=== PATIENT | female | born 1985 | race Caucasian/White ===

== ENCOUNTER 2019-05-01 19:40 | Inpatient (IN) | payer OTHER, SELFPAY ==
[2017-08-26 09:52] VITALS: BMI 28.7
[2019-05-01] VITALS (7 sets, daily range): BP systolic 109–136; BP diastolic 67–90; PULSE 63–77; RESP 13–18; TEMP 36.7; O2SAT 96–98; BMI 29.5
[2019-05-01] MEDS: Lactated Ringers 1,000 ML 999 ML IV (20:00)
[2019-05-01 20:44] LABS: Bacteria 0 SEEN /hpf (None Seen); Mucous, Urine 0 SEEN /hpf (<or=2+); Red Blood Cells-Urine 0 SEEN /hpf (0-5); White Blood Cells 0 SEEN /hpf (0-5)
--- NOTE | 2019-05-01 20:47 | PCM.HP.OB ---
History Date of Admission: 08/26/17 Final GABRIELLE: 04/27/19 Gestational age: 40 Weeks and 4 Days History of this : This is a 34 year-old, G [], P [], at weeks gestational age. Allergies No Known Allergies Allergy (Verified 08/26/17 12:22) Home Medications: Home Medications Naproxen [Naprosyn] 250 - 500 mg PO Q8H PRN PRN #30 tablet 08/29/17 Oxycodone HCl/Acetaminophen [Percocet 5-325] 2 tablet PO Q4H PRN PRN #30 tablet 08/29/17 Smoking Status: Never smoker Alcohol: None Number of Fetus(es): 1 Heart Tracin with moderate variability, accels TOCO Analysis: Q 3-6 minutes History Past Pregnancies: Past Pregnancies Delivery Date Name GA/Weeks Outcome Route Weight Infant Gender Labor Length Anesthesia Delivery Location Provider FOB Patient with 10 pregnancies. 9 were term & included twins. Her first delivery was 7 weeks early. Labs: Patient had 4 visits prior to today with signs and displays sales representative. She reports mild anemia (10.8 per records). States she took PNV, iron & sometimes a probiotic. Review of Systems HEENT: Reports: Head Aches - Patient reported headache to automobile accessories salesperson earlier today. Denies vision changes. Physical Exam Extremities:: No edema Neurological: Cranial nerves II-XII grossly intact PRODUCTION DIRECTOR: Normal external genitalia Estimated gestational size: Appropriate for gestational size Presentation: Breech - TAUS performed shows breech active fetus. Measurements c/w term fetus. Cervix Dilation (cm): 3 Station: -3 Effacement (%): 50 Assessment/Plan This is a 34 year-old female at 40&4 in labor. Admit to L&D. MOD - patient in labor with breech fetus. Counseled on R/B/A and will proceed with repeat . Informed consent sign. Pre-op ancef ordered. Anesthesia aware. Elevated BP - check preE labs. Patient with at least gestational hypertension.
[2019-05-01 20:49] LABS: Absolute Lymphocyte Count 1.91 X10^3/ul (0.83-4.51); Absolute Neutrophil Count 6.7 X10^3/uL (2.0-7.7); Basophil# 0.03 X10^3/uL; Basophil% 0.3 % (0-1); Hemoglobin 11.8 g/dl (12.0-15.0); Lymphocyte # 1.91 X10^3/ul (4.0); Lymphocyte % 20.5 % (19-41); Mean Corp Hgb Conc 34.7 g/gl (32-36); Mean Corpuscular Hgb 31.2 pg (27.0-32.0); Mean Corpuscular Volume 89.9 fL (81-99); Mean Platelet Vol. 9.4 fl (6.2-12.0); Monocyte# 0.66 X10^3/uL; Monocyte% 7.1 % (0-10); Neutrophil # 6.68 X10^3/uL (2.7-7.7); Neutrophil % 71.9 % (47-70); Platelet Count 213 K/mm3 (150-450); RBC Distribution Width CV 13.3 % (11.6-14.6); RBC Distribution Width SD 43.6 fl (35.1-43.9); Red Blood Count 3.78 M/mm3 (4.2-5.4); White Blood Count 9.3 K/mm3 (4.4-11.0)
[2019-05-01 20:50] LABS: POSITIVE COUNT NO; POSITIVE DIFFERENTIAL NO; POSITIVE MORPHOLOGY NO
--- NOTE | 2019-05-01 20:52 | NURSING ---
2050-had care by multiplex operator-liliam avalos. shirley hill covering for her.
[2019-05-01 20:55] LABS: Prothrombin Time (Protime)PT. 13.3 SECONDS (11.7-14.9)
[2019-05-01 20:56] LABS: Partial Thromboplast Time 27.3 Seconds (24.1-36.2)
[2019-05-01 20:57] LABS: Color, Urine Yellow (Yellow); Glucose, Dipstick Normal (Normal); Ketone-Dipstick 5 mg/dl (Negative); Leukocyte Esterase-Dipstick Negative /ul (Negative); Nitrite-Dipstick Negative (Negative); Occult Blood-Urine Negative /ul (Negative); Protein-Dipstick Negative (Negative); Urine Bilirubin Dipstick Negative (Negative); Urine Clarity Sl. Cloudy (Clear); Urine Urobilinogen Normal (Normal); Urine pH 6.5 (5.0 - 8.0)
[2019-05-01 21:02] LABS: Squamous Epithelial Cells - UA 0-5 SEEN /hpf (5-10)
[2019-05-01 21:04] LABS: AST(SGOT) 15 U/L (15-37); Alanine Aminotransfer ALT/SGPT 19 U/L (13-56); Creatinine, Serum 0.62 mg/dL (0.55-1.02); EST Glomerular Filtration Rate 120 mL/min (>60); Est Glom Filt Rate - Afr Amer 145 mL/min (>60); Estimated Creatinine Clearance 112.49 ml/min
[2019-05-01] MEDS: Sodium Citrate/Citric Acid 30 ML UDC PO (21:04)
[2019-05-01] MEDS: CHLORHEXIDINE GLUC 2% CLOTH 1 EACH TOWELETTE TOPICAL (21:05)
[2019-05-01 21:06] LABS: Amphetamine Urine VISTA NEGATIVE (<1000 ng/mL); Barbiturate Urine VISTA NEGATIVE (< 200 ng/mL); Benzodiazepine Urine VISTA NEGATIVE (< 200 ng/mL); Cocaine Urine VISTA NEGATIVE (< 300 ng/mL); Ecstacy Urine VISTA NEGATIVE (< 500 ng/mL); Methadone Urine VISTA NEGATIVE (< 300 ng/mL); PCP Urine VISTA NEGATIVE (< 25 ng/mL); Protein, Urine (Random) < 6.0 mg/dL (<11.9); THC Urine VISTA NEGATIVE (< 50 ng/mL); Vista UDS pH Range 6
[2019-05-01] MEDS: Cefazolin 2 GM in 0.9% Normal Saline 100 ML IV (21:10)
[2019-05-01] MEDS: Lactated Ringers 1,000 ML 150 ML IV (21:10)
[2019-05-01] MEDS: Ondansetron 4 MG/2 ML Vial IV (21:22)
[2019-05-01] MEDS: Oxytocin 30 units/NS 500 ml 30 UNITS/500 ML IV.SOLN 167 UNITS IV (21:41)
[2019-05-01] MEDS: Ketorolac 15 MG/ML Vial 30 MG IV (21:58)
--- NOTE | 2019-05-01 22:40 | PCM.OPRPT ---
Report of Operation Date of Procedure: 05/01/19 Pre-Operative Diagnosis: (1) Breech (2) Labor (3) Prior section Post-Operative Diagnosis: Same Surgery/Procedure Performed:: Low transverse section Description of Surgical Findings:: Normal maternal uterus and ovaries sales advisor: Steve Rai Type of Anesthesia:: Spinal Drains: palm - 550ml UOP Fluids Replaced: 1500ml Delivery Final GABRIELLE: 04/27/19 Gestational age: 40 Weeks and 4 Days Indications: Patient presented in labor with fetus in breech presentation. Indications for : Repeat Elective , Breech - Labor Description of Procedure: Patient taken to OR where spinal anesthesia was placed. She was prepped and draped in normal sterile fashion in a dorsal lithotomy position with a leftward tilt. After ensuring adequacy of anesthesia the Pfannensteil skin incision was made and carried through to the underlying fascia. The fascia was incised in the midline and carried laterally with the Mejia scissors. The rectus muscles were in the midline and the peritoneum was entered bluntly. The bladder flap was dissected down carefully with the Metzenbaum scissors and blunt dissection. The uterus was incised in a transverse fashion and then incision extended with cephalocaudad traction. The fetus was breech. The feet were grasped & delivered with typical breech maneuvers. No excess traction placed on at any time. The 3VC cord was clamped and cut and the handed off to the waiting RN. The placenta was delivered with gentle traction and fundal massage and the uterus was exteriorized and cleared of all clots and debris. The uterine incision was closed with 1 vicryl suture in a running locked fashion. The bovie was used to further obtain further hemostasis of the uterine incision. A second imbricating layer of monocryl was placed. The uterus was returned to the peritoneal cavity. The pelvis was irrigated & then cleared of all clots and debris. The uterine incision was reexamined and found to be hemostatic. Some sumaya was placed over the uterine incision due to the denuded areas. The parietal peritoneum was reapproximated with running 1 vicryl suture. The fascia was closed with looped PDS suture in a running standard fashion. The subcutaneous tissue was examined & any bleeding bovie cauterized. The subcutaneous tissue was reapproximated with 3-0 vicryl suture. The skin was closed in a subcuticular fashion by the BULK STATION AGENT with me present in the labor and delivery suite. I performed the remainder of the procedure with assistance. Amniotic Membrane Rupture Type: Artificial Amniotic Fluid Description: Clear Placenta Disposition: [facility] Drain: Palm to straight drain Cord Entanglement: None Cord Vessel Description: 3 Vessels Esitmated Blood Loss (ml): 750ml Gender: Male Delayed cord clamping: No Pre-op Antibiotic Given: Ancef 2 grams IV x1
[2019-05-01 22:44] LABS: Chlamydia Trachomatis by PCR Negative (Negative); Neisserai gonorrhoeae by PCR Negative (Negative); Probe Check PASS; Sample Adequacy Control PASS; Specimen Processing Control PASS
[2019-05-01] MEDS: Lactated Ringers 1,000 ML 100 ML IV (22:45)
--- NOTE | 2019-05-01 23:01 | NURSING ---
2239-pt in room 3 for recovery, noted small amount red drng coming through mid dressing, pressure applied for 3 min and area circled.
[2019-05-02] VITALS (19 sets, daily range): BP systolic 110–136; BP diastolic 64–90; PULSE 63–95; RESP 13–20; TEMP 36.5–37; O2SAT 97–100
[2019-05-02] MEDS: Acetaminophen 500 MG Tablet 1000 MG PO (00:22)
--- NOTE | 2019-05-02 02:26 | NURSING ---
0045-pressure held to site for 2 minutes
[2019-05-02 02:32] LABS: Rapid Plasmin Reagin (RPR) NONREACTIVE (NONREACTIVE)
[2019-05-02 04:33] LABS: Group B Strep DNA By PCR Negative (Negative); Internal Control PASS; Probe Check PASS; Specimen Processing Control PASS
[2019-05-02] MEDS: Ketorolac 15 MG/ML Vial 30 MG IV ×4 (05:08→23:11)
[2019-05-02 05:44] LABS: Hematocrit 31.4 % (37-47); Hemoglobin 10.8 g/dl (12.0-15.0); Mean Corp Hgb Conc 34.4 g/gl (32-36); Mean Corpuscular Hgb 30.9 pg (27.0-32.0); Mean Platelet Vol. 9.3 fl (6.2-12.0); Platelet Count 178 K/mm3 (150-450); RBC Distribution Width CV 13.2 % (11.6-14.6); RBC Distribution Width SD 42.5 fl (35.1-43.9); Red Blood Count 3.49 M/mm3 (4.2-5.4); White Blood Count 9.5 K/mm3 (4.4-11.0)
[2019-05-02 05:51] LABS: Scan Indicated on CBC? Y/N NO
--- NOTE | 2019-05-02 08:15 | PN.OBGYN_ITS ---
Subjective: Patient laying in bed, at bedside providing support. Patient reports that baby got transferred to [facility] last night for further evaluation for respiratory issues. Patient is resting at this time, reports some continued pain currently but has been taking pain medication as ordered and that has helped. Denies MURPHY, scotoma or RUQ pain. Denies dizziness. Patient has not been out of bed yet or attempted ambulation since surgery. Anticipate to get patient out of bed to ambulate soon. Objective: VSS, Afebrile; Last BP = 112/60 Nipples without cracks/blisters Abdomen NT x 4 quadrants, FF midline 1FB above umbilicus +2/4 reflexes in LE, no edema, no calf tenderness to palpation when palpated rich aterally scant rubra lochia - Physical Exam General: Alert, Oriented x3, Cooperative, - - flat affect HEENT: Atraumatic, Normocephalic Neck: Supple Lungs: Normal air movement Cardiovascular: Regular rate, No murmurs Abdomen: Soft, Non Tender, - - FF midline 1FB above umbilicus Extremities: No edema, Capillary Refill Less than 3 Seconds Skin: No rashes, No breakdown Musculoskeletal: No Tenderness to Palpation of Joints or Extremities Neurological: Cranial nerves II-XII grossly intact, Deep Tendon Reflexes 2+/4 and Symmetrical Psych/Mental Status: Normal Affect, Appropriate, Flat Affect Vital Signs Temp Pulse Resp BP Pulse Ox 97.7 F L 70 16 113/74 97 05/02/19 06:45 05/02/19 06:45 05/02/19 06:45 05/02/19 06:45 05/02/19 06:45 Oxygen Delivery Method Room Air Weight: 172 lb 6.424 oz Body Mass Index (BMI) 29.5 Intake and Output for Last 24 Hours 04/30/19 05/01/19 05/02/19 23:59 23:59 23:59 Intake Total 2500 / 2500 1743 / 1743 Output Total 550 / 550 750 / 750 Balance 1950 / 1950 993 / 993 Laboratory Tests Past 24 Hrs 05/01/19 05/01/19 05/01/19 19:10 20:00 20:00 WBC 9.3 RBC 3.78 L Hgb 11.8 L Hct 34.0 L MCV 89.9 MCH 31.2 MCHC 34.7 RDW 13.3 RDW Differential 43.6 Plt Count 213 MPV 9.4 Immature Gran % (Auto) 0.200 Neut % (Auto) 71.9 H Lymph % (Auto) 20.5 [place] % (Auto) 7.1 Eos % (Auto) 0.0 Baso % (Auto) 0.3 Absolute Neuts (auto) 6.7 Absolute Lymphs (auto) 1.91 Total Counted Not Reportable PT INR APTT Creatinine Estim Creat Clear Calc Est GFR (MDRD) Af Amer Est GFR (MDRD) Non-Af Uric Acid AST ALT Urine Color Yellow Urine Clarity Sl. Cloudy Urine pH 6.5 Ur Specific [place] 1.010 Urine Protein Negative Urine Glucose (UA) Normal Urine Ketones 5 H Urine Occult Blood Negative Urine Nitrite Negative Urine Bilirubin Negative Urine Urobilinogen Normal Ur Leukocyte Esterase Negative Urine RBC 0 SEEN Urine WBC 0 SEEN Ur Squamous Epith Cells 0-5 SEEN Urine Bacteria 0 SEEN Urine Mucus 0 SEEN U Random Total Protein Urine Creatinine Protein/Creatinin Ratio Urine Opiates Screen Urine Methadone Screen Ur Barbiturates Screen Ur Phencyclidine Scrn Ur Amphetamines Screen U Methamphetamin-MDMA U Benzodiazepines Scrn Urine Cocaine Screen U Cannabinoids Screen Ur Drug Screen Comment RPR Chlam trachomat DNA PCR Hep Bs Antigen Hepatitis C Ab (EIA) HIV 1&2 Antibody N.gonorrhoeae DNA (PCR) Rubella IgG Antibody Group B Strep DNA Negative Specimen Comment Not Reportable Blood Type Antibody Screen 05/01/19 05/01/19 05/01/19 20:00 20:00 20:00 WBC RBC Hgb Hct MCV MCH MCHC RDW RDW Differential Plt Count MPV Immature Gran % (Auto) Neut % (Auto) Lymph % (Auto) [place] % (Auto) Eos % (Auto) Baso % (Auto) Absolute Neuts (auto) Absolute Lymphs (auto) Total Counted PT INR APTT Creatinine Estim Creat Clear Calc Est GFR (MDRD) Af Amer Est GFR (MDRD) Non-Af Uric Acid AST ALT Urine Color Urine Clarity Urine pH Ur Specific [place] Urine Protein Urine Glucose (UA) Urine Ketones Urine Occult Blood Urine Nitrite Urine Bilirubin Urine Urobilinogen Ur Leukocyte Esterase Urine RBC Urine WBC Ur Squamous Epith Cells Urine Bacteria Urine Mucus U Random Total Protein Urine Creatinine Protein/Creatinin Ratio Urine Opiates Screen Urine Methadone Screen Ur Barbiturates Screen Ur Phencyclidine Scrn Ur Amphetamines Screen U Methamphetamin-MDMA U Benzodiazepines Scrn Urine Cocaine Screen U Cannabinoids Screen Ur Drug Screen Comment RPR NONREACTIVE Chlam trachomat DNA PCR Hep Bs Antigen Pending Hepatitis C Ab (EIA) Pending HIV 1&2 Antibody N.gonorrhoeae DNA (PCR) Rubella IgG Antibody Pending Group B Strep DNA Specimen Comment Blood Type Antibody Screen 05/01/19 05/01/19 05/01/19 20:00 20:00 20:00 WBC RBC Hgb Hct MCV MCH MCHC RDW RDW Differential Plt Count MPV Immature Gran % (Auto) Neut % (Auto) Lymph % (Auto) [place] % (Auto) Eos % (Auto) Baso % (Auto) Absolute Neuts (auto) Absolute Lymphs (auto) Total Counted PT 13.3 INR 1.0 APTT 27.3 Creatinine Estim Creat Clear Calc Est GFR (MDRD) Af Amer Est GFR (MDRD) Non-Af Uric Acid AST ALT Urine Color Urine Clarity Urine pH Ur Specific [place] Urine Protein Urine Glucose (UA) Urine Ketones Urine Occult Blood Urine Nitrite Urine Bilirubin Urine Urobilinogen Ur Leukocyte Esterase Urine RBC Urine WBC Ur Squamous Epith Cells Urine Bacteria Urine Mucus U Random Total Protein < 6.0 Urine Creatinine 15.80 Protein/Creatinin Ratio TNP Urine Opiates Screen Urine Methadone Screen Ur Barbiturates Screen Ur Phencyclidine Scrn Ur Amphetamines Screen U Methamphetamin-MDMA U Benzodiazepines Scrn Urine Cocaine Screen U Cannabinoids Screen Ur Drug Screen Comment RPR Chlam trachomat DNA PCR Hep Bs Antigen Hepatitis C Ab (EIA) HIV 1&2 Antibody N.gonorrhoeae DNA (PCR) Rubella IgG Antibody Group B Strep DNA Specimen Comment Blood Type A POSITIVE Antibody Screen NEGATIVE 05/01/19 05/01/19 05/01/19 20:00 20:00 20:00 WBC RBC Hgb Hct MCV MCH MCHC RDW RDW Differential Plt Count MPV Immature Gran % (Auto) Neut % (Auto) Lymph % (Auto) [place] % (Auto) Eos % (Auto) Baso % (Auto) Absolute Neuts (auto) Absolute Lymphs (auto) Total Counted PT INR APTT Creatinine 0.62 Estim Creat Clear Calc 112.49 Est GFR (MDRD) Af Amer 145 Est GFR (MDRD) Non-Af 120 Uric Acid 5.0 AST 15 ALT 19 Urine Color Urine Clarity Urine pH Ur Specific [place] Urine Protein Urine Glucose (UA) Urine Ketones Urine Occult Blood Urine Nitrite Urine Bilirubin Urine Urobilinogen Ur Leukocyte Esterase Urine RBC Urine WBC Ur Squamous Epith Cells Urine Bacteria Urine Mucus U Random Total Protein Urine Creatinine Protein/Creatinin Ratio Urine Opiates Screen NEGATIVE Urine Methadone Screen NEGATIVE Ur Barbiturates Screen NEGATIVE Ur Phencyclidine Scrn NEGATIVE Ur Amphetamines Screen NEGATIVE U Methamphetamin-MDMA NEGATIVE U Benzodiazepines Scrn NEGATIVE Urine Cocaine Screen NEGATIVE U Cannabinoids Screen NEGATIVE Ur Drug Screen Comment RPR Chlam trachomat DNA PCR Hep Bs Antigen Hepatitis C Ab (EIA) HIV 1&2 Antibody Pending N.gonorrhoeae DNA (PCR) Rubella IgG Antibody Group B Strep DNA Specimen Comment Blood Type Antibody Screen 05/01/19 05/02/19 20:00 05:00 WBC 9.5 RBC 3.49 L Hgb 10.8 L Hct 31.4 L MCV 90.0 MCH 30.9 MCHC 34.4 RDW 13.2 RDW Differential 42.5 Plt Count 178 MPV 9.3 Immature Gran % (Auto) Neut % (Auto) Lymph % (Auto) [place] % (Auto) Eos % (Auto) Baso % (Auto) Absolute Neuts (auto) Absolute Lymphs (auto) Total Counted PT INR APTT Creatinine Estim Creat Clear Calc Est GFR (MDRD) Af Amer Est GFR (MDRD) Non-Af Uric Acid AST ALT Urine Color Urine Clarity Urine pH Ur Specific [place] Urine Protein Urine Glucose (UA) Urine Ketones Urine Occult Blood Urine Nitrite Urine Bilirubin Urine Urobilinogen Ur Leukocyte Esterase Urine RBC Urine WBC Ur Squamous Epith Cells Urine Bacteria Urine Mucus U Random Total Protein Urine Creatinine Protein/Creatinin Ratio Urine Opiates Screen Urine Methadone Screen Ur Barbiturates Screen Ur Phencyclidine Scrn Ur Amphetamines Screen U Methamphetamin-MDMA U Benzodiazepines Scrn Urine Cocaine Screen U Cannabinoids Screen Ur Drug Screen Comment RPR Chlam trachomat DNA PCR Negative Hep Bs Antigen Hepatitis C Ab (EIA) HIV 1&2 Antibody N.gonorrhoeae DNA (PCR) Negative Rubella IgG Antibody Group B Strep DNA Specimen Comment Blood Type Antibody Screen Medical Necessity - Tobacco Use Smoking Status: Never smoker Assessment/Plan 34 y/o, Granmult[place], s/p Rpt LTCS for Breech Presentation, POD #1 P: 1) Continue PP Orders 2) Anticipatory PP Teaching 3) Consider discharge tomorrow if patient is stable and appropriate for discharge so she can be in [place] with baby who was transferred Taylor DOWNS
[2019-05-02] MEDS: Prenatal Vits Tablet 1 TABLET PO (08:24)
[2019-05-02] MEDS: Lactated Ringers 1,000 ML 100 ML IV (08:24)
[2019-05-02 12:05] LABS: Rubella IgG 28.7 IU/mL
[2019-05-02 12:31] LABS: HIV - WCH Non-Reactive (Nonreactive)
[2019-05-02] MEDS: 0.9% Saline Lock 10 ML Syringe IV ×2 (17:47→23:15)
[2019-05-03 02:30] VITALS: BP 117/83; PULSE 77; RESP 18; TEMP 37.1; O2SAT 98
[2019-05-03] MEDS: oxyCODONE 5 MG Tablet PO (03:55)
[2019-05-03] MEDS: Ketorolac 15 MG/ML Vial 30 MG IV ×2 (05:52→11:31)
[2019-05-03] MEDS: 0.9% Saline Lock 10 ML Syringe IV (05:52)
[2019-05-03 08:00] VITALS: BP 123/83; PULSE 74; RESP 17; TEMP 36.8; O2SAT 99
--- NOTE | 2019-05-03 08:57 | DCINST_ITS ---
Discharge Diet: No Restrictions Discharge Activity: May Not Drive - for 2 weeks or while taking narcotic pain meds., May Shower, May Take a Tub Bath - in 7 days. May resume sexual activity in: 4-6 weeks Lifting Restrictions: 20 pounds Additional Activity Instructions:: Nothing in the vagina for 4-6 weeks. You may return to work/school in 6 weeks. Call your doctor if your incision/area has: Continuous Slow Oozing, Sudden Increased Bleeding, Increased Pain/ Swelling, Increased Redness, Foul Smelling Discharge Call your doctor if you observe: Fever of 101 or Higher, Inability to urinate, Inability to have a bowel movement, Using more than one pad per hour, Chest pain, Calf discomfort, Uncontrolled pain Suture Line Care: Avoid Pulling/Pushing, Avoid Pinching/Bending Cleanse incision/area with: Soap & Water, Keep Dressing Clean & Dry Additional Instructions: If you experience any of the following, contact your healthcare provider. * Bleeding that soaks a pad every hour for 2 hours * Fever 100.4 or higher * Unrelieved incision or abdominal pain * Swelling, redness, discharge or bleeding from your incision or episiotomy site * Your incision begins to separate * Problems urinating (including inability to urinate or burning while urinating). * Visual changes * Severe headache * Flu-like symptoms * Pain or redness in one of both of your breasts * Pain, warmth, tenderness or swelling in your legs, especially the calf area * Frequent nausea and vomiting * Symptoms of depression or anxiety If you experience any of the following, call 911 or go to the nearest Emergency Room. * Chest pain * Problems breathing * Seizure activity * Partial or complete paralysis of a body part, slurred speech, weakness or drooping of the face, or a sudden inability to walk or hold your balance Allergies/Adverse Reactions: Allergies No Known Allergies Allergy (Verified 05/01/19 20:49) Medications to take at Discharge Vits [Prenatabs FA ] 1 tab PO DAILY 05/01/19 Acetaminophen [Tylenol] 1,000 mg PO Q8H PRN #30 tab 05/03/19 Ibuprofen [Motrin] 600 mg PO Q6H PRN PRN #60 tab 05/03/19 Oxycodone [Oxyir] 5 - 10 mg PO Q4H PRN PRN 7 Days #15 tab 05/03/19 The following prescriptions were given: Ibuprofen [Motrin] 600 mg PO Q6H PRN PRN #60 tab PRN Reason: Mild Pain (1-3/10) Prescription Printed Oxycodone [Oxyir] 5 - 10 mg PO Q4H PRN PRN 7 Days #15 tab PRN Reason: Mod-Severe Pain (4-10/10) Prescription Printed Acetaminophen [Tylenol] 1,000 mg PO Q8H PRN #30 tab PRN Reason: Mild Pain (1-3/10) Prescription Printed Follow-Up: Call to make an appointment with your doctor for an incision check in 1-2 weeks. You will also need a 6 week post- follow up appointment. Test results from this visit will be discussed in further detail at your follow- up appointment, if applicable. Primary Care Physician: Care Physician,No Primary [Primary Care Provider] - Proposed Discharge Date: 05/03/19
--- NOTE | 2019-05-03 09:18 | PCM.PN.OB ---
Subjective: Patient laying back in bed resting. Reports that she has been up to ambulate around the room and up to the bathroom without much difficulty or issue at this time. Patient and desire to be discharge today as baby is at [facility] at this time. Patient reports pain is well controlled. Reports no MURPHY, no RUQ pain, no increased or heavy lochia noted. Objective: Nipples without cracks or blisters, no erythema noted Abdomen NT x 4 quadrants, FF midline 1FB above umbilicus Incision dressing dry and intact +2/4 reflexes in LE, no edema noted, negative calf tenderness to palpation scant rubra lochia - Physical Exam General: Alert, Oriented x3, Cooperative HEENT: Atraumatic, Normocephalic Neck: Supple Lungs: Normal air movement Cardiovascular: Regular rate, No murmurs Abdomen: Soft, Non Tender Extremities: No edema, Capillary Refill Less than 3 Seconds Skin: No rashes, No breakdown Musculoskeletal: No Tenderness to Palpation of Joints or Extremities Neurological: Cranial nerves II-XII grossly intact Psych/Mental Status: Normal Affect, Appropriate Vital Signs Temp Pulse Resp BP Pulse Ox 98.8 F 77 18 117/83 H 98 05/03/19 02:30 05/03/19 02:30 05/03/19 02:30 05/03/19 02:30 05/03/19 02:30 Oxygen Delivery Method Room Air Weight: 172 lb 6.424 oz Body Mass Index (BMI) 29.5 Intake and Output for Last 24 Hours 05/01/19 05/02/19 05/03/19 23:59 23:59 23:59 Intake Total 2500 / 2500 4051 / 4051 Output Total 550 / 550 7300 / 7300 900 / 900 Balance 1950 / 1950 -3249 / -3249 -900 / -900 Laboratory Tests Past 24 Hrs 05/01/19 05/01/19 20:00 20:00 HIV 1&2 Antibody Non-Reactive Rubella IgG Antibody 28.7 Medical Necessity - Tobacco Use Smoking Status: Never smoker Assessment/Plan 34 y/o s/p Rpt LTCS for Breech Presentation, [place], POD #2 P: 1) Anticipate discharge to home today 2) Anticipatory discharge teaching reviewed 3) Patient to f/u for incision check in 1-2 weeks, patient reports desire to follow-up with her own community service representative for these visits 4) Counseling done re: contraception - patient and decline all options. Discussed recommendation for future births being in hospital as patient has had 2 c-sections and is grandmultip at risk for hemorrhages Taylor DOWNS
--- NOTE | 2019-05-03 11:30 | CASEMGMT ---
Social Work Referral Date: 05/02/19 Date of Assessment: 05/01/19 Reason for Consult: Triggering PHQ-9 Informant: Nursing staff, Mother of baby (MOB) Personal Status Mentation: A&Ox3 Present during assessment: MOB Hx : 11 Hx Para: 10 Infant Gender: Male Name: Cory Acevedo (1min): 4 (5min): 7 (10min): 7 Care: No, MOB has mid-. Alleged father: Brandon Acevedo Alleged father involved: Yes Length of Relationship with alleged father of baby: 12 Years Number of Children in the home: MOB and Father of baby (FOB) have 10 children and now 11 children at home. Lilibethey at 10, Brennen age 9, Celsa age 8, aRquel age 7, Brendan age 6, Luis F and Veronica (twins) age 5, Mickey age 4, Amy age 2, and Ramu age 1. Custody Comments: MOB and FOB have custody of all children. Living Arrangements: MOB, FOB and all children live in private home. Education: 8th grade Employment: [employer] Family Dynamics/Relationships: MOB reporting to have support mainly from MOB?s sisters. MOB?s sister help MOB with children. Supports: MOB reporting to have support from sisters. Substance Abuse Hx and Current Pattern of Use MOB denies any substance abuse. Mental Health Hx and Current Status MOB denies any history of depression or anxiety. MOB denies any history of depression. However, MOB is reporting to feel down ?some days.? MOB reporting to be able to speak with sisters when feeling down or to distract thoughts by focusing on work. MOB declining any counseling services of further support within the community. MOB reporting that FOB has the farm to worry about and is not able to ?listen? MOB. Items/Skills List for Infants Care Supplies: MOB reporting to have all needed supplies within the home. Bonding With : MOB reporting to feel a connection with and to want to be with . MOB is concerned about bonding with MOB due to infant being transferred. Observed Maternal/Paternal Child interaction: Unable to observe as infant was transferred to [facility] main campus earlier in the week. Emotional Assessment: MOB presenting with a flat affect. MOB did engage in conversation with this social sciences professor but showed very little emotion. Resources MOB reporting to have no concerns with transportation. This social sciences professor providing MOB with resources, mainly on depression. Intervention: Engaged in a conversation about depression and signs/symptoms. This social sciences professor also educating MOB on ways to work through feelings of feeling down/depression. MOB appreciative of this social sciences professor. Plan: MOB to discharge to community. MOB planning to go to [facility]. MOB reporting to have transportation to [facility] and that FOB is going with MOB. Portia Garcia CLOTHING TRADES WORKERS, BRIAN
[2019-05-03] MEDS: Prenatal Vits Tablet 1 TABLET PO (11:31)
[2019-05-03 13:00] VITALS: BP 120/61; PULSE 75; RESP 17; TEMP 36.7; O2SAT 99
--- NOTE | 2019-05-03 18:52 | CASEMGMT ---
Social Work Referral Date: 05/02/19 Date of Assessment: 05/03/19 Reason for Consult: Mother of baby (MOB) with history of depression/anxiety Informant: Nursing, Chart Personal Status Mentation: MOB A&Ox3 Present during assessment: MOB and Father of baby (FOB) Hx : 2 Hx Para: 1 Gender: Male Name: Ronald Urbina (1min): 8 (5min): 9 Care: Adequate Alleged father: Audi Urbina Alleged father involved: Yes Length of Relationship with alleged father of baby: MOB and FOB have been for 8 years. Number of Children in the home: Ronald is second child for MOB and FOB. First child, Baljit Urbina is 2 1/2 years old. Custody Comments: MOB and FOB have full custody of Baljit and now Ronald Living Arrangements: MOB, FOB, Baljit and now this live together in a private home. 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 Family Dynamics/Relationships: MOB and FOB both report a positive relationship and family. MOB stating that Baljit was an easy baby and that they hope Ronald will be the same. This mental health social worker did broach topic of how all children are different much like different personalities. MOB and FOB reporting to understand that Ronald might not be as easy as Baljit. Supports: MOB reporting to have support from family and friends. Substance Abuse Hx and Current Pattern of Use MOB denies any history. Mental Health Hx and Current Status MOB reporting to have a history of depression and anxiety and to have taken Lexapro in the past but to have started taking Zoloft during this per doctor recommendation. MOB reporting to have taken Lexapro for 3 years and to have tried to not take any medication for mental health management during this but that this did not work. MOB reporting that depression/anxiety is well managed with Zoloft and plans to continue with Zoloft now. MOB denies any history of counseling. MOB reporting that depression/anxiety symptoms started when MOB was in high school. MOB denies any history of depression with prior . MOB denies any suicidal thoughts/attempts or history of. MOB reporting to be currently feeling happy and excited to see how things will work out with their growing family. MOB educated and aware of depression signs and symptoms. Items/Skills List for Infants Care Supplies: MOB reporting to have all needed supplies (cloths, bed, car seat etc.). Bonding With : MOB reporting to be bonding with infant and to feel a connection. Observed Maternal/Paternal Child interaction: MOB holding during conversation with this mental health social worker. This mental health social worker observed MOB gazing and smiling towards infant often during assessment. Emotional Assessment: MOB presenting with a positive affect and engaged in conversation. Resources MOB reporting to currently not use any community resources. MOB educated on possible community resources including counseling services, if this is something that MOB finds is needed. Transportation: No concerns. Intervention: No interventions at this time, resources provided. Plan: MOB and this to discharge to home with FOJefferson and James. Portia Garcia PLUG CUTTING MACHINE OPERATOR, DIRECTOR INDUSTRIAL MUSEUM
[2019-05-05 11:49] LABS: HEPATITIS B SURFACE AG Negative (Negative); Hep C Antibodies 0.1 s/co ratio (0.0-0.9)
== END 2019-05-03 15:05 | disposition home or self-care (01) | DRG 788 ==
PROVIDERS: Admitting Provider Obstetrics & Gynecology; Visit Provider Obstetrics & Gynecology
DX: O34.211 Maternal care for low transverse scar from previous cesarean delivery (principal); O32.1XX0 Maternal care for breech presentation, not applicable or unspecified; O13.4 Gestational [pregnancy-induced] hypertension without significant proteinuria, complicating childbirth; Z3A.40 40 weeks gestation of pregnancy; Z37.0 Single live birth
CPT/HCPCS: 59025; 59050; 76815; 80307; 81001; 82565; 82570; 84156; 84450; 84460; 84550; 85025; 85027; 85610; 85730; 86592; 86703; 86762; 86803; 86850; 86900; 87081; 87340; 87491; 87591; 87653; 99218; J7120; A4216; G0378; J2405

== ENCOUNTER 2021-08-17 14:39 | Inpatient (IN) | payer SELFPAY, OTHER ==
[2021-08-17] VITALS (21 sets, daily range): BP systolic 116–177; BP diastolic 71–110; PULSE 52–88; RESP 16–18; TEMP 36–36.8; O2SAT 96–99; BMI 28.5
[2021-08-17 14:35] LABS: Hematocrit 39.6 % (37-47); Hemoglobin 13.7 g/dL (12.0-15.0); Mean Corp Hgb Conc 34.6 g/dL (32-36); Mean Corpuscular Hgb 31.4 pg (27.0-32.0); Mean Corpuscular Volume 90.6 fL (81-99); Mean Platelet Vol. 9.9 fl (6.2-12.0); Platelet Count 257 K/mm3 (150-450); RBC Distribution Width CV 13.1 % (11.6-14.6); Red Blood Count 4.37 M/mm3 (4.2-5.4); White Blood Count 10.4 K/mm3 (4.4-11.0)
[2021-08-17] MEDS: Lactated Ringers 1,000 ML 150 ML IV (14:44)
[2021-08-17] MEDS: Magnesium Sulfate 4gm/100mL 4 GM/100 ML IV.SOLN. IV (14:50)
[2021-08-17] MEDS: Labetalol (Prefilled) 20 MG/4 ML IV (14:53)
[2021-08-17 14:57] LABS: AST(SGOT) 15 U/L (15-37); Alanine Aminotransfer ALT/SGPT 17 U/L (13-56); Creatinine, Serum 0.61 mg/dL (0.55-1.02); EST Glomerular Filtration Rate 119 mL/min (>60); Est Glom Filt Rate - Afr Amer 144 mL/min (>60); Uric Acid 4.8 mg/dL (2.6-6.0)
[2021-08-17 15:00] LABS: Absolute Lymphocyte Count 1.84 X10^3/uL (0.83-4.51); Absolute Neutrophil Count 7.9 X10^3/uL (2.0-7.7); Basophil# 0.05 X10^3/uL; Basophil% 0.5 % (0-1); Eosinophil# 0.01 X10^3/uL; Eosinophils% 0.1 % (0-5); Hematocrit 38.6 % (37-47); Hemoglobin 13.6 g/dL (12.0-15.0); Lymphocyte # 1.84 X10^3/ul (0.83-4.51); Lymphocyte % 17.3 % (19-41); Mean Corp Hgb Conc 35.2 g/dL (32-36); Mean Corpuscular Hgb 31.8 pg (27.0-32.0); Mean Corpuscular Volume 90.2 fL (81-99); Mean Platelet Vol. 9.7 fl (6.2-12.0); Monocyte# 0.79 X10^3/uL; Monocyte% 7.4 % (0-10); NRBC Flagged by Analyzer 0 % (0-5); Neutrophil # 7.91 X10^3/uL (2.7-7.7); Neutrophil % 74.3 % (47-70); Platelet Count 265 K/mm3 (150-450); RBC Distribution Width CV 13.2 % (11.6-14.6); RBC Distribution Width SD 43.3 fl (35.1-43.9); Red Blood Count 4.28 M/mm3 (4.2-5.4); White Blood Count 10.6 K/mm3 (4.4-11.0)
[2021-08-17] MEDS: Labetalol (Prefilled) 20 MG/4 ML 40 MG IV (15:01)
[2021-08-17] MEDS: Magnesium Sulfate 4gm/100mL 2 GM/50 ML IV.SOLN. IV (15:07)
[2021-08-17] MEDS: Cefazolin 2 GM in 0.9% Normal Saline 100 ML IV (15:10)
[2021-08-17] MEDS: Magnesium Sulfate 20 GM/500 ML BAG IV (15:23)
[2021-08-17 15:42] LABS: Protein, Urine (Random) 15.8 mg/dL (<11.9); Protein:Creat Ratio 566 mg/g CRE (0-200)
[2021-08-17] MEDS: Oxytocin 30 units/NS 500 ml 30 UNITS/500 ML IV.SOLN 167 UNITS IV (16:20)
--- NOTE | 2021-08-17 16:34 | HP.PCM.OB_ITS ---
HPI - General General Date of Admission: 08/17/21 HPI Narrative CHARLENE FELIX, is a 36 F at 38/5 who presents with elevated blood pressures. Patient has limited care received through a experimental display builder. On arrival, blood pressures were in the 170s/110s. She received IV treatment with 20 mg of labetalol. Patient was noted to be lethargic and heart rate tracing showed minimal variability with intermittent variable decelerations therefore the decision was made to proceed with repeat as soon as possible. PFSH PFS Medical History (Updated 08/17/21 @ 16:[address] Emmy Roche MD) Anemia Allergy/AdvReac Type Severity Reaction Status Date / Time No Known Allergies Allergy Verified 08/17/21 14:13 Surgical History (Updated 08/17/21 @ 16:[address] Emmy Roche MD) Previous section complicating Social History Smoking Status: Never smoker History Elective abortions Hx Para 10 Spontaneous abortions Hx # Term Pregnancies Ectopic pregnancies Hx # Pregnancies Multiple births # of living children NST FHR Rate Baby A Baseline: 150 Variability:: Minimal Accelerations:: None Decelerations:: Late (Intermittent) and Variable (Intermittent) NST Reactive:: Non-Reactive FHR Category:: Category II ROS Eyes Eyes: Reports systems reviewed and no addt'l complaints, except as documented ENT HEENT: Reports systems reviewed and no addt'l complaints, except as documented Cardiovascular Cardiovascular: Reports systems reviewed and no addt'l complaints, except as documented Respiratory/Chest Respiratory/Chest: Reports systems reviewed and no addt'l complaints, except as documented Gastrointestinal Gastrointestinal: Reports systems reviewed and no addt'l complaints, except as documented Genitourinary Genitourinary: Reports systems reviewed and no addt'l complaints, except as documented Musculoskeletal Musculoskeletal: Reports systems reviewed and no addt'l complaints, except as documented Integumentary Integumentary: Reports systems reviewed and no addt'l complaints, except as documented Neurologic Neurologic: Reports systems reviewed and no addt'l complaints, except as documented Psychiatric Psychiatric: Reports systems reviewed and no addt'l complaints, except as documented Endocrine Endocrinology: Reports systems reviewed and no addt'l complaints, except as documented Hematologic/Lymphatic Hematologic/Lymphatic: Reports systems reviewed and no addt'l complaints, except as documented Allergic/Immunologic Allergic/Immunologic: Reports systems reviewed and no addt'l complaints, except as documented Vital Signs Vital Signs Vital Signs: 08/17/21 14:14 08/17/21 14:24 08/17/21 14:30 Temperature 98.2 F Pulse Rate 75 85 82 Blood Pressure 177/105 H 162/105 H 168/103 H BP Systolic 177 162 168 BP Diastolic 105 105 103 Pulse Ox 99 08/17/21 14:50 08/17/21 14:51 08/17/21 14:55 Temperature Pulse Rate 81 81 76 Blood Pressure 159/104 H BP Systolic 159 BP Diastolic 104 Pulse Ox 98 99 08/17/21 14:59 Temperature Pulse Rate 88 Blood Pressure 168/109 H BP Systolic 168 BP Diastolic 109 Pulse Ox Weight Weight: 161 lb 2.526 oz Body Mass Index (BMI) 28.5 Physical Exam Const alert, oriented x3, no apparent distress, average body habitus, healthy appearing and well nourished HEENT normocephalic and moist oral mucous membranes Head and Scalp: atraumatic Eyes PERRL and EOMs intact bilaterally Neck full ROM Resp normal respiratory effort, no retractions and no use of accessory muscles Cardio regular rate and regular rhythm GI soft to palpation, non-tender and non-distended Extremity normal to inspection and full ROM Skin no rashes or lesions noted Neuro no focal motor deficits and no sensory deficits noted Psych mental status grossly normal, affect normal, speech normal and activity/motor behavior normal Labs Labs Labs: Blood Type A POSITIVE Antibody Screen NEGATIVE Hct 38.6 % (37-47) Hgb 13.6 g/dL (12.0-15.0) Rubella IgG Antibody 28.7 IU/mL Hep Bs Antigen Negative (Negative) HIV 1&2 Antibody Non-Reactive (Nonreactive) C.trachomatis DNA (PCR) Negative (Negative) Group B Strep DNA Negative (Negative) Rhogam given: No Assessment & Plan (1) Pre-eclampsia: PLAN: Patient presented with severe range blood pressures requiring 20 mg of IV labetalol x2 Magnesium sulfate started for seizure prophylaxis (2) Limited care in third trimester: COMMENT: with lay-customer supply coordinator (3) History of : COMMENT: x2 (4) Non-reassuring status: PLAN: Plan to proceed with as soon as possible
--- NOTE | 2021-08-17 16:41 | EX.PCM.OBRPT ---
Assessment & Plan (1) delivery delivered: COMMENT: GP RCD 08/17 PreEwSF Details Operative Information Date of Procedure: 08/17/21 Pre-Operative Diagnosis: History of x2, preeclampsia with severe features, category 2 heart rate tracing Post-Operative Diagnosis: Same Indications for : Repeat Elective and Nonreassuring Status Indications Narrative: 36-year-old G 13 P 10 at 38 weeks gestation who presents with severe range blood pressures and was diagnosed with preeclampsia with severe features. On arrival, baby was noted to have minimal variability with late and variable decelerations therefore the decision was made to proceed with repeat as soon as blood pressures were stabilized. Classification: NOLBERTO Procedure Type: low transverse teacher resource #1: Kalpana Torres Type of Anesthesia: Spinal Special Medications: Magnesium sulfate Antibiotic Given: Ancef 2 grams IV x1 Drain: Juares to straight drain Estimated Blood Loss: 500 cc Fluids Replaced: 1000 cc Findings Description of Procedure: The patient is a G 13 P 10 at 38 weeks who presented for repeat . Spinal anesthesia was placed without difficulty. Juares catheter was placed. The patient was placed in the dorsal supine position with leftward tilt. Patient was prepped and draped in the normal sterile fashion. Pfannenstiel skin incision was made with the scalpel and carried through to the underlying layer of fascia with the scalpel. Fascia was nicked in the midline and the incision extended laterally. The rectus bellies were dissected off superiorly and inferiorly with out complication both sharply and bluntly. The peritoneum was entered digitally. The incision was stretched and a low transverse uterine incision was made with the scalpel. The breech was elevated out of the pelvis and delivered through the hysterotomy. The legs were delivered and the arms were swept across the body and the head was delivered. The cord was clamped and cut and the was handed off to awaiting nurse. The placenta was delivered spontaneously immediately following and was noted to be intact and have a three-vessel cord. The uterus was exteriorized cleared of all clots and debris, and the incision was closed in a single layer closure using #1 Monocryl. The ovaries and fallopian tubes were noted to be within normal limits. The uterus was returned to the maternal abdomen and gutters were cleared of all clots and debris. The peritoneum was closed with 3-0 Monocryl in a running fashion. Gloves were changed prior to fascial closure. Fascia was closed with 0 PDS in a running fashion. Subcutaneous tissue was copiously irrigated and the skin was closed with 3-0 Monocryl in a subcuticular fashion. Mepilex dressing was applied without complication. Patient was taken to recovery in stable condition. It was discussed with the patient that based on the clinical information obtained during this encounter, combined with her history, at this time I would recommend repeat C-sections for future deliveries if further pregnancies are desired. Presentation: Positive for Mtateo Breech Amniotic Membrane Rupture Type: Artificial Amniotic Fluid Description: Clear Placental Delivery Description: Spontaneous Placenta Disposition: [facility] Cord Vessel Description: 3 Vessels Cord Entanglement: None Cord Gases: ABG and VBG Infant A Gender: Female Delayed Cord Clamping: No Complications Risks of Surgery Discussed w/Patient: Bleeding, Anesthesia Risks and Need for Future C-Sections Admit VTE Documentation VTE Present on Admission: No VTE Mechan Device Prophylaxis: SCD's VTE Pharm Prophylaxis Ordered: Yes Procedures Urinary/Genital [id number]: [id number] Delivery global pkg
[2021-08-17] MEDS: Ketorolac 30 MG/ML Syringe IV ×2 (17:16→23:07)
[2021-08-17] MEDS: Acetaminophen 500 MG Tablet 1000 MG PO (18:25)
[2021-08-17] MEDS: Lactated Ringers 1,000 ML 50 ML IV (19:20)
[2021-08-17 20:16] LABS: Bacteria 0 SEEN /hpf (None Seen); Mucous, Urine 0 SEEN /hpf (<or=2+); Squamous Epithelial Cells - UA 0 SEEN /hpf (5-10)
[2021-08-17 20:20] LABS: Color, Urine Yellow (Yellow); Glucose, Dipstick Normal (Normal); Ketone-Dipstick 50 mg/dl (Negative); Leukocyte Esterase-Dipstick Negative /ul (Negative); Nitrite-Dipstick Negative (Negative); Occult Blood-Urine 25 /ul (Negative); Protein-Dipstick 15 mg/dl (Negative); Specific Gravity, Urine 1.025 (1.002-1.030); Urine Bilirubin Dipstick Negative (Negative); Urine Clarity Clear (Clear); Urine Urobilinogen Normal (Normal)
[2021-08-17 20:26] LABS: Red Blood Cells-Urine 0-5 SEEN /hpf (0-5); White Blood Cells 0-5 SEEN /hpf (0-5)
[2021-08-17 20:27] LABS: Hyaline Cast 0-5 SEEN /lpf (0-5)
[2021-08-17 20:31] LABS: Amphetamine Urine VISTA NEGATIVE (<1000 ng/mL); Barbiturate Urine VISTA NEGATIVE (< 200 ng/mL); Benzodiazepine Urine VISTA NEGATIVE (< 200 ng/mL); Cocaine Urine VISTA NEGATIVE (< 300 ng/mL); Ecstacy Urine VISTA NEGATIVE (< 500 ng/mL); Methadone Urine VISTA NEGATIVE (< 300 ng/mL); PCP Urine VISTA NEGATIVE (< 25 ng/mL); THC Urine VISTA NEGATIVE (< 50 ng/mL); Vista UDS pH Range 5
[2021-08-17 22:26] LABS: Chlamydia Trachomatis by PCR Negative (Negative); Neisserai gonorrhoeae by PCR Negative (Negative); Probe Check PASS; Sample Adequacy Control PASS; Specimen Processing Control PASS
[2021-08-17] MEDS: 0.9% Saline Lock 10 ML Syringe IV (23:09)
[2021-08-18] VITALS (22 sets, daily range): BP systolic 104–124; BP diastolic 62–85; PULSE 58–71; RESP 12–18; TEMP 35.6–36.8; O2SAT 97–100
[2021-08-18] MEDS: Acetaminophen 500 MG Tablet 1000 MG PO ×4 (00:15→18:30)
[2021-08-18] MEDS: Magnesium Sulfate 20 GM/500 ML BAG IV ×2 (01:16→12:28)
[2021-08-18] MEDS: Enoxaparin 40 MG/0.4 ML Syringe SC (04:24)
[2021-08-18] MEDS: Ketorolac 30 MG/ML Syringe IV ×2 (05:15→11:11)
[2021-08-18] MEDS: 0.9% Saline Lock 10 ML Syringe IV ×2 (05:17→11:11)
[2021-08-18 06:17] LABS: Hematocrit 36.2 % (37-47); Hemoglobin 12.3 g/dL (12.0-15.0); Mean Corpuscular Hgb 31.5 pg (27.0-32.0); Mean Corpuscular Volume 92.6 fL (81-99); Mean Platelet Vol. 9.9 fl (6.2-12.0); Platelet Count 226 K/mm3 (150-450); RBC Distribution Width CV 13.4 % (11.6-14.6); RBC Distribution Width SD 45.5 fl (35.1-43.9); Red Blood Count 3.91 M/mm3 (4.2-5.4); White Blood Count 10.5 K/mm3 (4.4-11.0)
--- NOTE | 2021-08-18 08:36 | PN.OBGYN_ITS ---
Subjective Subjective Patient doing well without complaints. Tolerating PO. Ambulating and voiding without difficulty. Breast feeding well. Denies chest pain, shortness of breath, calf pain/swelling, fevers, chills, lightheadedness. Objective Data Objective Data Vital Signs: Vital Signs Temp Pulse Resp BP Pulse Ox 97 F L 62 16 119/85 H 100 08/18/21 08:15 08/18/21 08:15 08/18/21 08:15 08/18/21 08:15 08/18/21 08:15 Oxygen Delivery Method Room Air Weight: 161 lb 2.526 oz Body Mass Index (BMI) 28.5 Intake & Output: Intake and Output for Last 24 Hours 08/16/21 08/17/21 08/18/21 23:59 23:59 23:59 Intake Total 1037.5 / 1037.5 1184.17 / 1184.17 Output Total 1550 / 1550 1844 / 1844 Balance -512.5 / -512.5 -659.83 / -659.83 Lab / Micro Data Result Diagrams: 08/18/21 05:45 08/17/21 14:25 Labs: Laboratory Results - last 24 hr 08/17/21 14:25: WBC 10.4, RBC 4.37, Hgb 13.7, Hct 39.6, MCV 90.6, MCH 31.4, MCHC 34.6, RDW Std Deviation 43.0, RDW Coeff of [place] 13.1, Plt Count 257, MPV 9.9 08/17/21 14:25: Creatinine 0.61, Estim Creat Clear Calc 107.50, Est GFR (MDRD) Af Amer 144, Est GFR (MDRD) Non-Af 119, Uric Acid 4.8, AST 15, ALT 17 08/17/21 14:45: WBC 10.6, RBC 4.28, Hgb 13.6, Hct 38.6, MCV 90.2, MCH 31.8, MCHC 35.2, RDW Std Deviation 43.3, RDW Coeff of [place] 13.2, Plt Count 265, MPV 9.7, Immature Gran % (Auto) 0.400, Neut % (Auto) 74.3 H, Lymph % (Auto) 17.3 L, [place] % (Auto) 7.4, Eos % (Auto) 0.1, Baso % (Auto) 0.5, Absolute Neuts (auto) 7.9 H, Absolute Lymphs (auto) 1.84, Nucleated RBC % 0 08/17/21 14:45: Blood Type A POSITIVE, Antibody Screen NEGATIVE 08/17/21 15:20: U Random Total Protein 15.8 H, Urine Creatinine 27.90, Protein/Creatinin Ratio 566 H 08/17/21 19:45: Urine Color Yellow, Urine Clarity Clear, Urine pH 5.0, Ur Specific Benson 1.025, Urine Protein 15 H, Urine Glucose (UA) Normal, Urine Ketones 50 H, Urine Occult Blood 25 H, Urine Nitrite Negative, Urine Bilirubin Negative, Urine Urobilinogen Normal, Ur Leukocyte Esterase Negative, Urine RBC 0-5 SEEN, Urine WBC 0-5 SEEN, Ur Squamous Epith Cells 0 SEEN, Urine Bacteria 0 SEEN, Hyaline Casts 0-5 SEEN, Urine Mucus 0 SEEN 08/17/21 19:45: Urine Opiates Screen NEGATIVE, Urine Methadone Screen NEGATIVE, Ur Barbiturates Screen NEGATIVE, Ur Phencyclidine Scrn NEGATIVE, Ur Amphetamines Screen NEGATIVE, U Methamphetamin-MDMA NEGATIVE, U Benzodiazepines Scrn NEGATIVE, Urine Cocaine Screen NEGATIVE, U Cannabinoids Screen NEGATIVE, Ur Drug Screen Comment 08/17/21 20:25: Chlam trachomat DNA PCR Negative, N.gonorrhoeae DNA (PCR) Negative 08/18/21 05:45: WBC 10.5, RBC 3.91 L, Hgb 12.3, Hct 36.2 L, MCV 92.6, MCH 31.5, MCHC 34.0, RDW Std Deviation 45.5 H, RDW Coeff of [place] 13.4, Plt Count 226, MPV 9.9 Micro: Microbiology 08/17/21 19:45 Nasal Secretion SARS-CoV-2 Antigen (Rapid) - Final ROS Constitutional Constitutional: Denies fever(s) Cardiovascular Cardiovascular: Denies chest pain, dyspnea or lightheadedness Gastrointestinal Gastrointestinal: Reports abdominal pain; Denies constipation or diarrhea Neurologic Neurologic: Denies dizziness or headache(s) Physical Exam Const alert, oriented x3, no apparent distress, average body habitus, healthy joey earing and well nourished HEENT normocephalic Head and Scalp: atraumatic Eyes PERRL and EOMs intact bilaterally Neck full ROM Lymph Lymphatic: no lymphadenopathy noted Resp normal respiratory effort, no retractions and no use of accessory muscles Cardio regular rate GI soft to palpation, non-tender and non-distended Inspection: incision intact and other (dressing in place) Palpation: other Other Details: fundus firm Extremity normal to inspection and no clubbing, cyanosis or edema Skin no rashes or lesions noted Neuro no focal motor deficits and no sensory deficits noted Psych mental status grossly normal, affect normal and speech normal Assessment & Plan (1) Pre-eclampsia: PLAN: BPs stable since delivery without medication on mag x24h PreE labs neg on admission Asymptomatic (2) delivery [facility]: [facility]: s[facility]p [facility] PPD # 1 1. routine post care 2. breast feeding- support given 3. rh positive 4. rubella immune
--- NOTE | 2021-08-18 08:38 | PCM.DC ---
Discharge Instructions Diet Discharge Diet: No restrictions Activity May resume sexual activity in: 4-6 weeks Lifting Restrictions: 20 lbs Additional Activity Instructions:: Nothing in the vagina for 4-6 weeks. You may return to work/school in 6 weeks. Dressing / Incision Call your doctor if your incision/area has: Continuous Slow Oozing, Sudden Increased Bleeding, Increased Pain/ Swelling, Increased Redness and Foul Smelling Discharge Call your doctor if you observe: Fever of 101 or Higher Suture Line Care: Avoid Pulling/Pushing and Avoid Pinching/Bending Follow Up Care When: Call to make an appointment with your doctor for an incision check in 1-2 weeks. You will also need a 6 week post- follow up appointment. Test Results: Test results from this visit will be discussed in further detail at your follow-up appointment, if applicable. Discharge Plan Admission Admit Date/Time: 08/17/21 14:39 Primary Reason for Your Visit: Preeclampsia Attending Provider: Emmy Roche Primary Care Provider: Care Physician,No Primary Instructions Patient Instructions: Understanding Preeclampsia, After a Discharge Orders/Prescriptions Prescriptions: New ibuprofen 800 mg tablet 800 mg PO Q8H PRN (Reason: pain) Qty: 60 RF: 1 Referrals / Follow Up: Care Physician,No Primary [Primary Care Provider] -
[2021-08-18 09:08] LABS: Rubella IgG Reactive (Nonreactive); Syphilis Antibodies Non-reactive
[2021-08-18 09:20] LABS: HIV - WCH Non-Reactive (Nonreactive); Hepatitis B Surface Antigen Non-Reactive (Nonreactive); Hepatitis C Antibody Non-Reactive (Nonreactive)
--- NOTE | 2021-08-18 10:29 | NURSING ---
stood pt at bedside to attempt to sit up in chair. pt became dizzy while standing and safely sat back down on bed. once lying down pt feeling better.
[2021-08-18] MEDS: Senna/Docusate Sodium 1 Tablet PO (11:11)
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
--- NOTE | 2021-08-18 16:08 | CHAPLAIN ---
Type of Pastoral Visit _x__ Initial Visit ___ Follow-up Visit ___ On-call Visit ___ General Patient Visit ___ Spiritual Assessment ___ Family Conference ___ Bereavement ___ Rapid Response ___ Code Blue ___ Other (describe below) Pastoral Care Referral From _x__ Patient ___ Family ___ Nurse ___ Physician ___ Physical Anthropologist ___ Commissioned Sales Associate _x__ Other (describe below) Sacrament/Intervention _x__ Active listening ___ Anointing ___ Yazdanism ___ Bereavement ___ Communion ___ Robyn exploration ___ ___ Life review _x__ Prayer ___ Reconciliation ___ Sacrament of Sick _x__ Supportive presence ___ Wedding ___ Other (describe below) Pastoral Comments patient was referred to this administrative tech by Ezequiel Schafer due to fact her was transferred to [facility]; pt and RN are in the room; pt appears to be sleepy but does engage in conversation for a brief visit and offer of support; pt states that she is doing ok and is fine with the baby going to another hospital for special care needed; pt indicates that God is truly the one in charge of all things and can help her baby; pt accepts prayer support
[2021-08-18] MEDS: Ibuprofen 600 MG Tablet PO (17:08)
[2021-08-18] MEDS: oxyCODONE 5 MG Tablet PO (20:07)
[2021-08-19 00:29] VITALS: BP 131/82; PULSE 64; RESP 16; TEMP 36.3; O2SAT 97
[2021-08-19] MEDS: Ibuprofen 600 MG Tablet PO ×2 (00:31→06:34)
[2021-08-19] MEDS: Acetaminophen 500 MG Tablet 1000 MG PO ×2 (00:31→06:34)
[2021-08-19 06:36] VITALS: BP 140/92; PULSE 63; RESP 18; TEMP 36.7; O2SAT 98
--- NOTE | 2021-08-19 08:46 | PN.OBGYN_ITS ---
Subjective Subjective Patient doing well without complaints. Tolerating PO. Ambulating and voiding without difficulty. Breast feeding well. Denies chest pain, shortness of breath, calf pain/swelling, fevers, chills, lightheadedness. Objective Data Objective Data Vital Signs: Vital Signs Temp Pulse Resp BP Pulse Ox 98.0 F 63 18 140/92 H 98 08/19/21 06:36 08/19/21 06:36 08/19/21 06:36 08/19/21 06:36 08/19/21 06:36 Oxygen Delivery Method Room Air Weight: 161 lb 2.526 oz Body Mass Index (BMI) 28.5 Intake & Output: Intake and Output for Last 24 Hours 08/17/21 08/18/21 08/19/21 23:59 23:59 23:59 Intake Total 1037.5 / 1037.5 3575.00 / 3575.00 Output Total 1550 / 1550 4704 / 4704 800 / 800 Balance -512.5 / -512.5 -1129.00 / -1129.00 -800 / -800 Lab / Micro Data Result Diagrams: 08/18/21 05:45 08/17/21 14:25 Labs: Laboratory Results - last 24 hr 08/17/21 19:45: Syphilis Total Ab Non-reactive, Rubella IgG Antibody Reactive 08/17/21 19:45: Hep Bs Antigen Non-Reactive, Hepatitis C Antibody Non-Reactive, HIV 1&2 Antibody Non-Reactive Micro: Microbiology 08/17/21 19:45 Nasal Secretion SARS-CoV-2 Antigen (Rapid) - Final ROS Constitutional Constitutional: Denies fever(s) Cardiovascular Cardiovascular: Denies chest pain, dyspnea or lightheadedness Gastrointestinal Gastrointestinal: Reports abdominal pain; Denies constipation or diarrhea Neurologic Neurologic: Denies dizziness or headache(s) Physical Exam Const alert, oriented x3, no apparent distress, average body habitus, healthy appearing and well nourished HEENT normocephalic Head and Scalp: atraumatic Eyes PERRL and EOMs intact bilaterally Neck full ROM Lymph Lymphatic: no lymphadenopathy noted Resp normal respiratory effort, no retractions and no use of accessory muscles Cardio regular rate GI soft to palpation, non-tender and non-distended Inspection: incision intact and other (dressing in place) Palpation: other Other Details: fundus firm Extremity normal to inspection and no clubbing, cyanosis or edema Skin no rashes or lesions noted Neuro no focal motor deficits and no sensory deficits noted Psych mental status grossly normal, affect normal and speech normal Assessment & Plan (1) Pre-eclampsia: PLAN: s/p mag sulfate x24h BPs mainly normotensive since delivery asymptomatic (2) delivery delivered: COMMENT: GP RCD 08/17 PreEwSF [facility] PLAN: s/p LTCS PPD # 2 1. routine post care 2. breast feeding- support given 3. rh positive 4. rubella immune
[2021-08-19] MEDS: Senna/Docusate Sodium 1 Tablet PO (11:21)
[2021-08-19] MEDS: Enoxaparin 40 MG/0.4 ML Syringe SC (11:23)
[2021-08-19 11:26] VITALS: BP 148/98; PULSE 75; RESP 18; TEMP 36.4
== END 2021-08-19 11:45 | disposition home or self-care (01) | DRG 788 ==
LOC: WPOUT 14:40 → WP 14:40
PROVIDERS: Admitting Provider Obstetrics & Gynecology; Referring Provider Obstetrics & Gynecology; Visit Provider Obstetrics & Gynecology
DX: O76 Abnormality in fetal heart rate and rhythm complicating labor and delivery (principal); O14.14 Severe pre-eclampsia complicating childbirth; Z20.822 Contact with and (suspected) exposure to COVID-19; O34.219 Maternal care for unspecified type scar from previous cesarean delivery; O32.1XX0 Maternal care for breech presentation, not applicable or unspecified; Z3A.38 38 weeks gestation of pregnancy; Z37.0 Single live birth
CPT/HCPCS: 59025; 80307; 81001; 82565; 82570; 84156; 84450; 84460; 84550; 85025; 85027; 86703; 86762; 86780; 86803; 86850; 86900; 86901; 87340; 87426; 87491; 87591; 99218; J7120; A4216; G0378; J2405

== ENCOUNTER 2021-08-24 18:14 | Observation (INO) | payer OTHER, SELFPAY ==
[2021-08-24] VITALS (20 sets, daily range): BP systolic 118–159; BP diastolic 73–99; PULSE 63–91; TEMP 36.6–37.4; O2SAT 95–98; BMI 23.9
[2021-08-24] MEDS: 0.9% Saline Lock 10 ML Syringe IV (17:58)
[2021-08-24] MEDS: Acetaminophen 500 MG Tablet 1000 MG PO (18:44)
[2021-08-24] MEDS: DiphenhydrAMINE 25 MG Capsule PO (18:44)
[2021-08-24] MEDS: Metoclopramide 10 MG Tablet PO (18:51)
[2021-08-24 18:53] LABS: Anion Gap 6 (5-15); BUN 17 mg/dL (7-18); BUN/Creat Ratio 33.7 RATIO (10-20); Chloride 108 mmol/L (98-107); EST Glomerular Filtration Rate 148 mL/min (>60); Est Glom Filt Rate - Afr Amer 179 mL/min (>60); Estimated Creatinine Clearance 148.41 ml/min; Glucose 83 mg/dL (74-106); Hematocrit 42.4 % (37-47); Hemoglobin 14.4 g/dL (12.0-15.0); Mean Corpuscular Hgb 30.8 pg (27.0-32.0); Mean Corpuscular Volume 90.8 fL (81-99); Mean Platelet Vol. 9.2 fl (6.2-12.0); Platelet Count 381 K/mm3 (150-450); Potassium 3.9 mmol/L (3.5-5.1); RBC Distribution Width CV 12.6 % (11.6-14.6); RBC Distribution Width SD 41.4 fl (35.1-43.9); Red Blood Count 4.67 M/mm3 (4.2-5.4); Sodium Level 139 mmol/L (136-145); White Blood Count 10.1 K/mm3 (4.4-11.0)
[2021-08-24 18:59] LABS: AST(SGOT) 22 U/L (15-37); Alanine Aminotransfer ALT/SGPT 52 U/L (13-56); Uric Acid 4.9 mg/dL (2.6-6.0)
[2021-08-24] MEDS: Lactated Ringers 1,000 ML 999 ML IV (19:30)
--- NOTE | 2021-08-24 20:45 | OB.TRI.HP_ITS ---
HPI - General General Date of Admission: 08/24/21 HPI Narrative CHARLENE FELIX is a 36-year-old female postop day 7 status post repeat C- section for preeclampsia with severe features. She was sent in by her tape stringer due to severely elevated blood pressures at home as well as a headache. Reports headache has been off and on throughout the day. Of note, she is under significant stress as her baby had a complex cardiac defect and is only expected to live a few days. Patient admits that she has not really slept, eaten, or hydrated in the last few days since discharge. Reports that she did have some blurred vision earlier in the day today but none currently. Denies numbness, weakness, tingling. Denies chest pain, shortness of breath, lightheadedness, dizziness. [facility] Medical History (Updated 08/24/21 @ 20:[address] Emmy Roche MD) Anemia Depression History of pre-eclampsia History of Home Medications ibuprofen 800 mg PO Q8H PRN #60 tab 08/18/21 [Rx Last Taken 3 Days Ago ~08/21/21] nifedipine 30 mg tablet,extended release 24 hr 30 mg PO DAILY #30 tab 08/24/21 [Rx Last Taken 08/24/21 15:00] Allergy/AdvReac Type Severity Reaction Status Date / Time No Known Allergies Allergy Verified 08/24/21 17:42 Surgical History Previous section Previous section complicating Social History Smoking Status: Never smoker History Elective abortions Hx Para 10 Spontaneous abortions Hx # Term Pregnancies Ectopic pregnancies Hx # Pregnancies Multiple births # of living children ROS Constitutional Constitutional: Reports fatigue; Denies fever(s) or weakness Eyes Eyes: Denies blind spots or spots in vision Cardiovascular Cardiovascular: Denies chest pain, dyspnea or lightheadedness Respiratory/Chest Respiratory/Chest: Denies dyspnea Gastrointestinal Gastrointestinal: Denies abdominal pain, nausea or vomiting Physical Exam Const alert, oriented x3, no apparent distress, average body habitus, healthy appearing and well nourished HEENT normocephalic and moist oral mucous membranes Head and Scalp: atraumatic Eyes PERRL and EOMs intact bilaterally Neck full ROM Resp normal respiratory effort, no retractions and no use of accessory muscles Cardio regular rate and regular rhythm GI soft to palpation, non-tender and non-distended Extremity normal to inspection and full ROM Skin no rashes or lesions noted Neuro no focal motor deficits and no sensory deficits noted Psych mental status grossly normal, affect normal, speech normal and activity/motor behavior normal Assessment & Plan (1) headache, : PLAN: Patient presents 1 week status post repeat for preeclampsia with severe features. Patient had elevated blood pressures at home up into the 170s. She was started on Procardia XL 30 mg daily today which she took earlier this afternoon. Patient also reports headache. Since arrival, has only had 1 elevated blood pressure the remainder have been normal. Patient given Reglan, Benadryl, Tylenol, and IV fluid. Reports that her headache has decreased and is at a point where she would be comfortable going home. Of note, I feel that her headache is also likely related to acute stress given her baby's critical condition as well as sleep deprivation. Strict return precautions reviewed with patient and she understands reasons to return. Her tape stringer will come out and perform a repeat blood pressure check in the next day or so. Patient understands the importance of continuing Procardia for blood pressure control. Charges/Coding Visit Charges Office Visits / Consults: 56444 OV L3 Est
== END 2021-08-24 21:33 | disposition home or self-care (01) ==
PROVIDERS: Admitting Provider Obstetrics & Gynecology; Visit Provider Obstetrics & Gynecology
DX: O14.15 Severe pre-eclampsia, complicating the puerperium (principal)
CPT/HCPCS: 96361; 36415; 80048; 84450; 84460; 84550; 85027; 99218; J7120; A4216; G0378